=== PATIENT | female | born 1950 | race Caucasian/White ===

== ENCOUNTER 2020-05-09 10:53 | Inpatient (IN) | payer MEDICARE, SELFPAY ==
[~2020-05-09] VITALS: Ht 175.3 cm; Wt 108.4 kg
[2020-05-09 11:00] VITALS: BP 150/66
[2020-05-09] MEDS ORDERED: NACL 0.9% 1,000 ML IV ONE ×2 (11:20→13:25)
[2020-05-09 12:10] LABS: BASOPHILS % (AUTO) 0.1 % (0.0-2.0); HEMATOCRIT 42.6 % (36-48); HEMOGLOBIN 12.7 g/dL (12.0-16.0); LYMPHOCYTES # (AUTO) 1.3 K/uL (2.5-16.5); LYMPHOCYTES % (AUTO) 11.9 % (20.5-51.1); MEAN CORPUSCULAR HEMOGLOBIN 27 pg (27-31); MEAN CORPUSCULAR HGB CONC 30 g/dL (33-37); MEAN CORPUSCULAR VOLUME 89.8 fL (80-94); MONOCYTES # (AUTO) 0.9 K/uL (0.8-1.0); MONOCYTES % (AUTO) 8.5 % (1.7-9.3); NEUTROPHILS # (AUTO) 8.5 K/uL (1.8-7.7); NEUTROPHILS % (AUTO) 79.5 % (42.2-75.2); PLATELET COUNT (AUTO) 354 K/uL (140-450); RED BLOOD CELL COUNT(AUTO) 4.74 MIL/uL (4.20-5.40); RED CELL DISTRIBUTION WIDTH 14.8 % (11.6-13.7); WHITE BLOOD COUNT (AUTO) 10.7 K/uL (4.8-10.8)
--- NOTE | 2020-05-09 12:21 | NUR ---
PATIENT PRESENTS TO ED WITH GEN WEAKNESS AND HIGH BLOOD SUGAR . N/V/D; SKIN IS PINK/WARM/DRY; AAOX4 WITH EVEN AND WEAK GAIT; LUNGS CLEAR BL; HR EVEN AND REGULAR; PT DENIES ANY FEVER, CP, SOB, OR COUGH AT THIS TIME; PATIENT STATES PAIN OF 0/10 AT THIS TIME; VSS; PATIENT POSITIONED FOR COMFORT; HOB ELEVATED; BEDRAILS UP X2; BED DOWN. ER MD MADE AWARE OF PT STATUS.
[2020-05-09 12:23] LABS: PROTHROMBIN TIME 9.7 secs (10.8-13.4)
[2020-05-09 12:25] LABS: MAGNESIUM 1.9 mg/dL (1.8-2.4)
[2020-05-09 12:27] LABS: ALBUMIN 3.2 g/dL (3.4-5.0); ANION GAP 33.8 (8-16); CREATININE 1.8 mg/dL (0.6-1.3); TOTAL BILIRUBIN 0.4 mg/dL (0.0-1.0)
[2020-05-09 12:42] LABS: C-REACTIVE PROTEIN QUANT 4.3 mg/dL (0.0-0.9)
[2020-05-09 12:46] LABS: CARBON DIOXIDE 8.6 mmol/L (21-32)
--- NOTE | 2020-05-09 13:00 | NUR ---
DAUGHTER'S NUMBER [id number]
[2020-05-09] MEDS ORDERED: INSULIN REGULAR, HUMAN 100 UNIT in NACL 0.9% 100 ML IV SCH ×4 (13:25→14:40)
[2020-05-09 13:27] LABS: POTASSIUM 6.4 mmol/L (3.5-5.1)
[2020-05-09] MEDS: BLOOD GLUCOSE MONITORING 1 DEV DEV FS SCH ×11 (13:53→22:47)
[2020-05-09 13:55] LABS: RSV NEGATIVE (NEGATIVE)
[2020-05-09] MEDS ORDERED: CALCIUM GLUCONATE 10% 1,000 MG in NACL 0.9% 50 ML IV SCH (14:48)
[2020-05-09] MEDS ORDERED: HYDROcodone/APAP 5/325 MG 1 TAB TAB PO PRN (14:55)
[2020-05-09] MEDS ORDERED: DOCUSATE SODIUM 100 MG GELCAP PO PRN (14:55)
[2020-05-09] MEDS ORDERED: ONDANSETRON 4 MG/2 ML VIAL IM/IVP PRN (14:55)
[2020-05-09] MEDS ORDERED: POTASSIUM CHLORIDE 40 MEQ, LIDOCAINE MPF 1% 25 MG in NACL 0.9% 250 ML IV PRN (14:55)
[2020-05-09] MEDS ORDERED: ACETAMINOPHEN 325 MG TAB PO PRN (14:55)
[2020-05-09] MEDS ORDERED: MORPHINE SULFATE 2 MG/ML SYR IVP PRN (14:55)
[2020-05-09] MEDS ORDERED: MAG SULF 2000 MG/WATER PREMIX 50 ML IV PRN (14:55)
[2020-05-09] MEDS ORDERED: SODIUM PHOS / POTASSIUM PHOS 1 PKT PDR PO PRN (14:55)
[2020-05-09 15:07] LABS: APPEARANCE,URINE CLEAR (CLEAR); BILIRUBIN,URINE 1+ (NEGATIVE); BLOOD, URINE 1+ (NEGATIVE); COLOR,URINE YELLOW (YELLOW); LEUKOCYTE ESTERASE ,URINE NEGATIVE (NEGATIVE); NITRITE, URINE NEGATIVE (NEGATIVE); UGLUCOSE 3+ (NEGATIVE)
--- NOTE | 2020-05-09 15:30 | NUR ---
INSULIN DRIP STARTED
[2020-05-09] MEDS: NACL 0.9% 1,000 ML IV SCH ×2 (15:35→20:06)
[2020-05-09 16:21] LABS: RBC,URINE 0-5 /HPF (0-5); WBC,URINE 0-5 /HPF (0-5)
[2020-05-09 16:48] LABS: MAGNESIUM 2.3 mg/dL (1.8-2.4); PHOSPHORUS 5.7 mg/dL (2.5-4.9)
[2020-05-09 16:50] LABS: ANION GAP 33.3 (8-16); CREATININE 1.5 mg/dL (0.6-1.3)
[2020-05-09 17:27] LABS: CARBON DIOXIDE 7.4 mmol/L (21-32)
[2020-05-09 17:28] LABS: POTASSIUM 5.7 mmol/L (3.5-5.1)
--- NOTE | 2020-05-09 19:20 | NUR ---
RECEIVED REPORT FROM DAKOTA MCCORD AND [facility].
--- NOTE | 2020-05-09 19:30 | NUR ---
PT AWAKE IN BED. PT STATES THAT SHE FEELS SLEEPY BUT IN NO PAIN. VSS AT THIS TIME. EXPLAINED PLAN OF CARE FOR THE PM SHIFT, PT UNDERSTANDS. BOTH SIDE RAILS UP AND BED IN LOWEST POSITION. BED CHOU AT BEDSIDE AND CALL LIGHT WITHIN REACH.
--- NOTE | 2020-05-09 19:53 | NUR ---
PT RIGHT HAND IV WAS OUT. ALL MEDS AND FLUIDS WERE RUNNING BUT NOT INFUSING. WET LINENS REPLACED AND FLUIDS/MEDS STARTED RUNNING ON LEFT WRIST IV
--- NOTE | 2020-05-09 20:03 | NUR ---
BS 280. DECREASED INSULIN DRIP TO 3U/HR PER PROTOCOL.
[2020-05-09 20:32] LABS: ANION GAP 28.4 (8-16); CREATININE 1.4 mg/dL (0.6-1.3); POTASSIUM 5.2 mmol/L (3.5-5.1)
[2020-05-09 20:33] LABS: MAGNESIUM 2.2 mg/dL (1.8-2.4); PHOSPHORUS 4.4 mg/dL (2.5-4.9)
[2020-05-09 20:37] LABS: CARBON DIOXIDE 9.8 mmol/L (21-32)
[2020-05-09] MEDS: METOPROLOL 25 MG TAB PO SCH (21:43)
[2020-05-09] MEDS ORDERED: ALBUTEROL SULFATE/IPRATROPIU 3 ML SOL IH PRN (21:55)
[2020-05-09] MEDS: FAMOTIDINE 20 MG/2 ML VIAL IV SCH (22:47)
--- NOTE | 2020-05-09 22:49 | NUR ---
BS 226 DECREASED TO 2U PER PROTOCOL
--- NOTE | 2020-05-09 23:12 | NUR ---
PT ASLEEP IN BED AT THIS TIME. PT CONNECT TO MONITOR AND VITAL SIGNS WITHIN NORMAL LIMITS. RESPIRATIONS ARE EVEN AND UNLABORED. BED IN LOWEST POSITION AND SIDE RAILS UP. CALL LIGHT WITHIN REACH
[2020-05-10] MEDS: BLOOD GLUCOSE MONITORING 1 DEV DEV FS SCH ×21 (00:46→22:49)
[2020-05-10] MEDS: NACL 0.9% 1,000 ML IV SCH ×5 (00:47→16:25)
[2020-05-10 00:50] LABS: MAGNESIUM 2.2 mg/dL (1.8-2.4); PHOSPHORUS 3.5 mg/dL (2.5-4.9)
--- NOTE | 2020-05-10 01:25 | NUR ---
PT SLEEPING IN BED, EASILY AROUSEABLE TO VOICE. RESPIRATIONS EVEN AND UNLABORED. VSS. BED IN LOWEST POSITION AND SIDE RAILS UP. BEDSIDE COMMODE READILY AVAILABLE IN ROOM. CALL LIGHT WITHIN REACH
[2020-05-10 02:05] LABS: ANION GAP 25.8 (8-16); CARBON DIOXIDE 11.7 mmol/L (21-32); CREATININE 1.3 mg/dL (0.6-1.3); POTASSIUM 5.5 mmol/L (3.5-5.1)
[2020-05-10 05:13] LABS: ANION GAP 25.9 (8-16); CREATININE 1.3 mg/dL (0.6-1.3); POTASSIUM 5.9 mmol/L (3.5-5.1)
--- NOTE | 2020-05-10 05:25 | NUR ---
16 G IV INSERTED IN RIGHT UPPER ARM VIA ULTRASOUND
--- NOTE | 2020-05-10 07:15 | NUR ---
RECEIVED REPORT FROM CAMERA PROTOTYPING ENGINEER FOR CONTINUITY OF CARE
--- NOTE | 2020-05-10 08:40 | NUR ---
ENDOCRINOLOGY NURSE UNABLE TO OBTAIN VBG SAMPLE AT THIS TIME LAB TO ATTEMPT AT A LATER TIME
[2020-05-10] MEDS: METOPROLOL 25 MG TAB PO SCH ×2 (08:42→22:30)
[2020-05-10] MEDS: ENOXAPARIN 40 MG/0.4 ML SYR SUBQ SCH (08:42)
--- NOTE | 2020-05-10 08:54 | NUR ---
PATIENT HAS BEEN SCREENED AND CATEGORIZED HIGH NUTRITION RISK. PATIENT WILL BE SEEN WITHIN 1-2 DAYS OF ADMISSION. 05/10/20-05/11/[address]
--- NOTE | 2020-05-10 09:06 | NUR ---
PT IN BED, HOB ELEVATED. AOX4, NO C/O PAIN, NO SOB, ON ROOM AIR. DUE MEDS GIVEN. BS 248, ON INSULIN DRIP 2U/HR ORDERED
[2020-05-10 09:26] LABS: MAGNESIUM 2.1 mg/dL (1.8-2.4); PHOSPHORUS 3.5 mg/dL (2.5-4.9)
--- NOTE | 2020-05-10 10:29 | NUR ---
SOCIAL WORK NOTE: Patient's Orientation Unable To Assess Information Provided By GERRY ARTEAGA - DAUGHTER Comments SW WAS UNABLE TO MEET PATIENT AT BEDSIDE. SW COMPLETED ASSESSMENT WITH PATIENT'S DAUGHTER. New Media Strategist, Realtionship and Phone Number GERRY ARTEAGA DAUGHTER [phone] JADE LOCKWOODSON [phone] Healthcare Power of Creel Hand No Does Patient Have a POLST Yes Identifying Problems No Social Work Triggers Is A Social Work Consult Needed No Mandate Report Filed No Explanation Of Identifying Problems PATIENT IS A 69-YEAR-OLD FEMALE ADMITED FOR DKA AND HYPERKALEMIA. PATIENT HAS PMHX OF HYPERTENSION, DIABETES, SVT, AND ASTHMA. PATIENT'S DAUGHTER REPORTED NO HX OF MENTAL HEALTH OR SUBSTANCE ABUSE. Admitted From Home Pre-Admission Level Of Functioning Status Independent/Ambulatory Prior Resources/Services Used In Last 12 Months No Prior Resources Used Prior DME No Prior DME Used Dialysis Comments N/A Living Situation Lives With Family House Patient Had Caregiver No Home Support No Caregiver Issues Financial Issues No Known Financial Issue Referral To The Financial Counselor Needed No Factors/Needs No D/C Needs Identified Pt/Rep Participated In Discharge Plan Yes Patient/Family Agress With Discharge Plan Yes Discharge Plan Comments TENTATIVE DISCHARGE PLAN IS FOR PATIENT TO RETURN HOME. DC Plan Status Initiated
[2020-05-10 10:31] LABS: BASOPHILS % (AUTO) 0.2 % (0.0-2.0); HEMOGLOBIN 11.4 g/dL (12.0-16.0); LYMPHOCYTES # (AUTO) 1.2 K/uL (2.5-16.5); LYMPHOCYTES % (AUTO) 10.6 % (20.5-51.1); MEAN CORPUSCULAR HEMOGLOBIN 27 pg (27-31); MEAN CORPUSCULAR HGB CONC 32 g/dL (33-37); MEAN CORPUSCULAR VOLUME 85.4 fL (80-94); MONOCYTES % (AUTO) 8.4 % (1.7-9.3); NEUTROPHILS # (AUTO) 9.4 K/uL (1.8-7.7); NEUTROPHILS % (AUTO) 80.8 % (42.2-75.2); PLATELET COUNT (AUTO) 272 K/uL (140-450); RED BLOOD CELL COUNT(AUTO) 4.22 MIL/uL (4.20-5.40); RED CELL DISTRIBUTION WIDTH 14.3 % (11.6-13.7); WHITE BLOOD COUNT (AUTO) 11.6 K/uL (4.8-10.8)
[2020-05-10 10:49] LABS: CREATININE 1.1 mg/dL (0.6-1.3); POTASSIUM 4.9 mmol/L (3.5-5.1)
[2020-05-10 10:54] LABS: CARBON DIOXIDE 8.9 mmol/L (21-32)
[2020-05-10 12:40] LABS: ANION GAP 27.6 (8-16); CREATININE 1.3 mg/dL (0.6-1.3); POTASSIUM 4.6 mmol/L (3.5-5.1)
--- NOTE | 2020-05-10 13:00 | NUR ---
DR ALFREDO NOTIFIED OF ANION GAP AND BLOOD SUGAR TRENDING UP, CO2 TRENDING DOWN. ORDERED TO ADJUST INSULIN DRIP TO 0.1UNIT/KG/HR
[2020-05-10] MEDS: INSULIN REGULAR, HUMAN 100 UNIT in NACL 0.9% 100 ML IV SCH ×2 (14:34)
[2020-05-10 16:41] LABS: ANION GAP 26.9 (8-16); CREATININE 1.1 mg/dL (0.6-1.3); POTASSIUM 4.2 mmol/L (3.5-5.1)
[2020-05-10 16:50] LABS: CARBON DIOXIDE 9.3 mmol/L (21-32)
--- NOTE | 2020-05-10 19:16 | NUR ---
Assumed care of pt. Pt resting comfortably in bed. VSS. Pt on cardiac tele monitor. Will continue to monitor.
--- NOTE | 2020-05-10 19:55 | NUR ---
BS 129
--- NOTE | 2020-05-10 20:00 | NUR ---
IVF D51/2NS started per protocol
[2020-05-10 20:21] LABS: CARBON DIOXIDE 10.5 mmol/L (21-32); POTASSIUM 3.5 mmol/L (3.5-5.1)
--- NOTE | 2020-05-10 20:55 | NUR ---
BS 102
--- NOTE | 2020-05-10 21:47 | NUR ---
BS 122
--- NOTE | 2020-05-10 22:06 | NUR ---
Pt resting comfortably in bed. Pt educated to keep arm straight for IV fluids. VSS. All needs met at this time.
--- NOTE | 2020-05-10 22:23 | NUR ---
Pt given water
[2020-05-10] MEDS: FAMOTIDINE 20 MG/2 ML VIAL IV SCH (22:30)
--- NOTE | 2020-05-10 22:51 | NUR ---
BS 122
--- NOTE | 2020-05-11 00:04 | NUR ---
BS 112
[2020-05-11] MEDS: BLOOD GLUCOSE MONITORING 1 DEV DEV FS SCH ×20 (00:05→23:30)
[2020-05-11 00:40] LABS: ANION GAP 15.7 (8-16); CARBON DIOXIDE 15.6 mmol/L (21-32); CREATININE 0.9 mg/dL (0.6-1.3); POTASSIUM 3.3 mmol/L (3.5-5.1)
--- NOTE | 2020-05-11 01:30 | NUR ---
Verified orders with Dr. Renee. TO keep Insulin at 5 units/hr and D5 1/2 NS 200ml/hr. order okay to eat in the morning.
--- NOTE | 2020-05-11 02:21 | NUR ---
Pt had arm bent preventing IVF from running, BS 67. Pt given [employer]
--- NOTE | 2020-05-11 02:31 | NUR ---
MD made aware of BS, awaiting for orders at this time.
--- NOTE | 2020-05-11 02:37 | NUR ---
BS 84
--- NOTE | 2020-05-11 03:31 | NUR ---
Pt resting in bed, helped reposition for comfort. Given extra blanket. VSS. Will continue to monitor.
--- NOTE | 2020-05-11 04:05 | NUR ---
PATIENT WAS FOUND TO HAVE LEFT AC IV SITE REMOVED. CHRISTAL DUNCAN WAS NOTIFIED.
--- NOTE | 2020-05-11 04:23 | NUR ---
IVF resumed, 20 gauge in left AC established.
--- NOTE | 2020-05-11 06:14 | NUR ---
No changes upon assessment
--- NOTE | 2020-05-11 06:35 | NUR ---
BS 107
--- NOTE | 2020-05-11 07:09 | NUR ---
Report given and care endorsed to DAKOTA Solorzano
[2020-05-11 08:57] LABS: ANION GAP 20.2 (8-16); CARBON DIOXIDE 14.2 mmol/L (21-32); CREATININE 0.9 mg/dL (0.6-1.3); POTASSIUM 3.4 mmol/L (3.5-5.1)
[2020-05-11] MEDS: METOPROLOL 25 MG TAB PO SCH ×2 (09:46→21:00)
[2020-05-11] MEDS: ENOXAPARIN 40 MG/0.4 ML SYR SUBQ SCH (09:46)
[2020-05-11] MEDS: INSULIN REGULAR, HUMAN 100 UNIT in NACL 0.9% 100 ML IV SCH ×2 (10:49)
--- NOTE | 2020-05-11 11:00 | NUR ---
PATIENT SLEEPING COMFORTABLY IN BED. NOT IN ANY DISTRESS.
--- NOTE | 2020-05-11 12:00 | NUR ---
PER MD, MAY CHANGE D5 1/2NS TO NS @ 60ML/HR POST MEAL
--- NOTE | 2020-05-11 12:42 | NUR ---
PT EATING IN BED. NOT IN ANY DISTRESS.
--- NOTE | 2020-05-11 13:50 | NUR ---
D5 1/2NS DISCONTINUED. NS @ 60 ML/HR STARTED PER MD ORDER.
--- NOTE | 2020-05-11 14:43 | NUR ---
BUN 95, creatinine 11.7--critical values received from lab. Dr Renee made aware
--- NOTE | 2020-05-11 14:52 | NUR ---
05/11/20 RD INITIAL ASSESSMENT COMPLETED PLEASE REFER TO NUTRITION ASSESSMENT UNDER CARE ACTIVITY FOR ESTIMATED NUTRITIONAL NEEDS. 1. CONTINUE CARDIAC, RENAL CCHO DIET TOLERATED 2. RD WILL PROVIDE NUTRITION EDUCATION ON DIABETES AND CONSISTENT CARBOHYDRATE INTAKE 3. RD TO FOLLOW-UP 3-5 DAYS, MODERATE RISK CARL DEVINE, RD
[2020-05-11 16:14] LABS: CREATININE 0.8 mg/dL (0.6-1.3)
[2020-05-11 16:21] LABS: ANION GAP 13.8 (8-16)
[2020-05-11 16:27] LABS: POTASSIUM 2.8 mmol/L (3.5-5.1)
--- NOTE | 2020-05-11 16:29 | NUR ---
BS 54. MD ORDERS FOLLOWS: DISCONTINUE NS AND START D5 1/2NS @100ML/HR ONE BAG
[2020-05-11] MEDS ORDERED: KCL 20 MEQ/WATER INJ PREMIX 100 ML IV ONE (16:41)
--- NOTE | 2020-05-11 16:45 | NUR ---
RECEIVED CALL FROM LAB. SPECIMEN DRAWN FROM 11AM CONTAMINATED. DISREGARD LAB RESULTS FROM THIS DRAW.
[2020-05-11] MEDS ORDERED: KCL 20 MEQ/WATER INJ PREMIX 100 ML IV SCH (17:00)
--- NOTE | 2020-05-11 18:30 | NUR ---
BS 47. DR ALFREDO ORDERED THE FF: INCREASE D5 1/2NS TO 200ML/HR GIVE 1 AMP D50
[2020-05-11] MEDS: DEXTROSE 50% 50 ML SYR IVP PRN (18:39)
--- NOTE | 2020-05-11 19:25 | NUR ---
PER NURSE KARLI PT ACCIDENTLY PULLED ON HER IV SITE ON THE L AC. NEW IV SITE ESTABLISHED TO L WRIST 22 G SITE WAS PATENT, FLUSHED WITH 10 ML OF 0.9% NS. NO REDNESS, SWELLING OR INFILTRATION NOTED.
[2020-05-11] MEDS: DEXT 5% / NACL 0.45% 1,000 ML IV SCH (19:30)
--- NOTE | 2020-05-11 19:30 | NUR ---
RECEIVED REPORT FROM KARLI DUNCAN FOR CONTINUITY OF CARE.
[2020-05-11 19:31] LABS: ANION GAP 17.4 (8-16); CARBON DIOXIDE 16.7 mmol/L (21-32); CREATININE 0.9 mg/dL (0.6-1.3); POTASSIUM 3.1 mmol/L (3.5-5.1)
--- NOTE | 2020-05-11 20:45 | NUR ---
PT REMAINS ON INSULIN DRIP RUNNING AT 0.05 UNITS/KG. ION GAP OF 17.4. NOTIFIED DR. ALFREDO AND GAVE NO NEW ORDERS AND TO CONTINUE PT ON INSULIN DRIP TILL WE CAN RECEIVE TWO CONSICUTIVES ION GAPS OF LESS THAN 13. WILL CONTINUE TO MONITOR. PT IS IN NO ACUTE DISTRESS NOTED, BREATHING EVEN AND UNLABORED EVIDENCE BY RISE AND FALL OF CHEST WALL. Q1 HR ACCUCHECKS FOR INSULIN. ARNAUD CONTINUE TO MONITOR. ON CARDIAC MONITORING, BP MONITORING AND PULSE OXIMETRY.
--- NOTE | 2020-05-11 21:20 | NUR ---
PT ASSISTED TO BEDSIDE BEDPAN, TOLERATED WELL. PER PT REQUEST BREIF WAS GIVEN.
[2020-05-11] MEDS: FAMOTIDINE 20 MG/2 ML VIAL IV SCH (22:05)
[2020-05-11 23:32] LABS: CREATININE 0.7 mg/dL (0.6-1.3)
[2020-05-11 23:33] LABS: CARBON DIOXIDE 16.3 mmol/L (21-32)
[2020-05-11 23:35] LABS: ANION GAP 16.6 (8-16); POTASSIUM 2.9 mmol/L (3.5-5.1)
--- NOTE | 2020-05-11 23:45 | NUR ---
CRITICAL LAB OF K+ 2.9. NOTIFIED DR. ALFREDO AND GAVE NO NEW ORDERS STATED TO FOLLOW PRN ORDER.
--- NOTE | 2020-05-12 | NUR ---
CALLED INTERNAL COMMUNICATIONS MANAGER JODEE THAT PRN POTASSIUM CHLORIDE 40 MEQ WITH XYLOCAINE. WAS NOT AVAILABLE IN [facility] AND STATED, "THAT SHE WOULD CALL PHARMACY AND GET BACK TO NURSE". WILL FOLLOW UP.
--- NOTE | 2020-05-12 00:05 | NUR ---
MRSA SWAB COLLECTED AND WALKED TO LAB.
[2020-05-12] MEDS: BLOOD GLUCOSE MONITORING 1 DEV DEV FS SCH ×9 (00:30→21:21)
--- NOTE | 2020-05-12 00:31 | NUR ---
FOLLOWED UP WITH DRYER AND WASHER MECHANIC JODEE REGARDING KCL WITH LIDOCAINE AND STATED THAT PAHRMACIST WAS ALREADY PREPARRING MEDICATION AND SOON IT BECAME AVAILABLE SHE WOULD BRING MEDICATION TO THE FLOOR. NOTIFIED DR. ALFREDO AND STATED, "OKAY THANKS".
--- NOTE | 2020-05-12 00:54 | NUR ---
RECEIVED MEDICATION FROM REPAIR ARMATURE WINDER HELPER JODEE, MEDICATION GIVEN.
--- NOTE | 2020-05-12 02:31 | NUR ---
SEE IV SPREADSHEET OR BLOOD GLUCOSE MONITORING FOR BLOOD GLUCOSE LEVEL.
--- NOTE | 2020-05-12 03:47 | NUR ---
PT IN NO ACUTE DISTRESS NOTED BREATHING EVEN AND UNLABORED EVIDENCE BY RISE AND FALL OF CHEST WALL. INSULIN DRIP RUNNING AT 0.05 UNITS/KG/HR. PT ALSO ON KCL W/LIDOCAINE RUNNING AT 10 MEQ/HR. FOR A TOTAL OF [address] ORDER. D5% 1/2 NS RUNNING AT 200 ML/HR. REMAINS ON BEDSIDE MONITORING, WILL CONTINUE TO MONITOR FOR ANY CHANGES IN CONDITION. CALL LIGHT LEFT WITHIN REACH AND ALL NEEDS MEET PRIOR TO EXIT.
--- NOTE | 2020-05-12 04:48 | NUR ---
NEW INSULIN BAG MIXED AND HUNG AT THIS TIME. VERIFIED BY SECOND RN FLORINDA. CONTINUED RATE OF 0.05 UNITS/KG/HR.
[2020-05-12] MEDS: INSULIN REGULAR, HUMAN 100 UNIT in NACL 0.9% 100 ML IV SCH ×2 (04:49)
[2020-05-12] MEDS: DEXT 5% / NACL 0.45% 1,000 ML IV SCH ×2 (04:51→15:07)
--- NOTE | 2020-05-12 05:50 | NUR ---
FELISA SWAB COLLECTED AND WALKED TO LAB.
[2020-05-12 06:23] LABS: ANION GAP 19.3 (8-16); CARBON DIOXIDE 16.3 mmol/L (21-32); CREATININE 0.8 mg/dL (0.6-1.3); POTASSIUM 3.6 mmol/L (3.5-5.1)
--- NOTE | 2020-05-12 07:16 | NUR ---
REPORT GIVEN TO KARLI DUNCAN FOR CONTINUITY OF CARE.
--- NOTE | 2020-05-12 07:16 | NUR ---
NOTIFIED DR. ALFREDO OF ANION GAP TRENDING UPWARD NEW RESULT OF 19.3. GAVE NO NEW ORDERS.
--- NOTE | 2020-05-12 07:33 | NUR ---
PT SLEEPING COMFORTABLY IN BED AT THIS TIME.
[2020-05-12] MEDS: ENOXAPARIN 40 MG/0.4 ML SYR SUBQ SCH (08:49)
[2020-05-12] MEDS: METOPROLOL 25 MG TAB PO SCH ×2 (09:10→21:12)
[2020-05-12 09:16] LABS: ANION GAP 15.3 (8-16); CARBON DIOXIDE 16.6 mmol/L (21-32); CREATININE 0.6 mg/dL (0.6-1.3)
--- NOTE | 2020-05-12 10:18 | NUR ---
Potassium 2.9--critical value received from lab.
--- NOTE | 2020-05-12 10:21 | NUR ---
.K- 2.9 DR ALFREDO MADE AWARE. ORDER OF 20MEQ KCL GIVEN AND CARRIED OUT.
[2020-05-12 10:27] LABS: POTASSIUM 2.9 mmol/L (3.5-5.1)
[2020-05-12] MEDS ORDERED: KCL 20 MEQ/WATER INJ PREMIX 100 ML IV ONE (10:29)
[2020-05-12] MEDS ORDERED: KCL 20 MEQ/WATER INJ PREMIX 100 ML IV SCH (11:00)
[2020-05-12] MEDS: DEXTROSE 50% 50 ML SYR IVP PRN (12:13)
[2020-05-12 12:37] LABS: ANION GAP 15.4 (8-16); CARBON DIOXIDE 17.8 mmol/L (21-32); CREATININE 0.7 mg/dL (0.6-1.3); POTASSIUM 3.2 mmol/L (3.5-5.1)
--- NOTE | 2020-05-12 12:45 | NUR ---
LATE ENTRY -- 1ST NORMAL SALINE BOLUS COMPLETED AT 1220, 2ND BOLUS COMPLETED AT 1459 BOTH ON 05/09/20
--- NOTE | 2020-05-12 15:48 | NUR ---
Covid results received from lab. Results = Positive. Hard copy requested from lab and placed in infection controls mailbox.
--- NOTE | 2020-05-12 15:57 | NUR ---
TEXTED DR. ALFREDO TO SEE IF PATIENT MAY BE DOWNGRADED TO TELE.
[2020-05-12] MEDS ORDERED: INSULIN LISPRO SLIDING SCALE 100 UNITS/ML VIAL SUBQ PRN (16:00)
--- NOTE | 2020-05-12 16:03 | NUR ---
PER DR ALFREDO, MAY STOP INSULIN DRIP AND START ON SLIDING SCALE.
[2020-05-12 16:56] LABS: CREATININE 0.6 mg/dL (0.6-1.3)
--- NOTE | 2020-05-12 16:57 | NUR ---
REC'D TELEPHONE REPORT FROM ED NURSE
--- NOTE | 2020-05-12 17:01 | NUR ---
REPORT CALLED TO DAKOTA LORENZ. PT GOING TO TELE ROOM 123-B.
[2020-05-12 17:09] LABS: ANION GAP 17.2 (8-16); CARBON DIOXIDE 17.8 mmol/L (21-32)
--- NOTE | 2020-05-12 17:30 | NUR ---
REC'D PT FROM ED NURSE, PT WALKED TO BED, RA. A/ox4,SKIN INTACT, RED PATCHES ON KRISHAN.LOWER EXTREMITIES, R. HAND 20G INFUSING D5/0.45NS AT 100ML HOUR. MRSA SWAB COLLECTED.
--- NOTE | 2020-05-12 17:33 | NUR ---
Patient will be admitted to care of DR CARLISLE. Admited to TELE. Will go to room 123B. Belongings list completed. Report to DAKOTA LORENZ.
--- NOTE | 2020-05-12 19:45 | NUR ---
RECEIVED BEDSIDE REPORT FROM DAY SHIFT NURSE. PATIENT IS AWAKE RESPIRATION EVEN UNLABORED ON ROOM AIR. NO DISTRESS NOTED. SKIN IS WARM AND DRY. IV PATENT AND INTACT. PLAN OF CARE WAS DISCUSSED. ALL SAFETY MEASURES IN PLACE. BED IS AT LOW POSITION. CALL LIGHT WITHIN REACH. WILL CONTINUE TO MONITOR.
--- NOTE | 2020-05-12 19:55 | NUR ---
ENDORSED PT TO SANITARIAN NURSE, PT STABLE
[2020-05-12 20:00] VITALS: BP 116/77
[2020-05-12 20:46] LABS: ANION GAP 17.3 (8-16); CARBON DIOXIDE 19.1 mmol/L (21-32); CREATININE 0.7 mg/dL (0.6-1.3); POTASSIUM 3.4 mmol/L (3.5-5.1)
[2020-05-12] MEDS: FAMOTIDINE 20 MG/2 ML VIAL IV SCH (21:12)
[2020-05-12] MEDS: INSULIN LISPRO SLIDING SCALE 100 UNITS/ML VIAL SUBQ PRN (21:20)
--- NOTE | 2020-05-12 21:25 | NUR ---
ALL SCHEDULED MEDS WERE GIVEN PER ORDER. NO ASE NOTED. WILL CONTINUE TO MONITOR.
--- NOTE | 2020-05-12 23:42 | NUR ---
MADE ROUNDS. PATIENT IS AWAKE RESPIRATION EVEN UNLABORED ON ROOM AIR. NO DISTRESS NOTED. WILL CONTINUE TO MONITOR
[2020-05-13] VITALS: BP 146/66
[2020-05-13] MEDS: DEXT 5% / NACL 0.45% 1,000 ML IV SCH ×3 (00:57→20:40)
--- NOTE | 2020-05-13 02:16 | NUR ---
MADE ROUNDS PATIENT SLEEPING RESPIRATION EVEN UNLABORED ON ROOM AIR. NO DISTRESS NOTED. WILL CONTINUE TO MONITOR.
[2020-05-13 04:00] VITALS: BP 149/81
--- NOTE | 2020-05-13 04:30 | NUR ---
MORNING CARE PROVIDED.
[2020-05-13] MEDS: BLOOD GLUCOSE MONITORING 1 DEV DEV FS SCH ×4 (06:43→21:00)
[2020-05-13] MEDS ORDERED: INSULIN LISPRO 100 UNITS/ML VIAL SUBQ ONE (07:30)
--- NOTE | 2020-05-13 07:37 | NUR ---
ENDORSED PATIENT TO DAY SHIFT NURSE FOR CONTINUITY OF CARE
[2020-05-13 08:00] VITALS: BP 166/87
[2020-05-13] MEDS: METOPROLOL 25 MG TAB PO SCH ×2 (09:49→21:00)
[2020-05-13] MEDS: ENOXAPARIN 40 MG/0.4 ML SYR SUBQ SCH (09:52)
--- NOTE | 2020-05-13 09:59 | NUR ---
MEDICATION DUE GIVEN PATIENT. RECENT VITAL SIGNS BP 166/87 VA 79. NO DISTRESS NOTED. NO PAIN NOTED. SAFETY MEASURES IN PLACE. CALL LIGHT WITHIN REACH. WILL CONTINUE TO MONITOR.
--- NOTE | 2020-05-13 11:40 | NUR ---
BLOOD SUGAR CHECK 317 MG.DL INSULIN COVERAGE GIVEN.
[2020-05-13 12:00] VITALS: BP 162/74
[2020-05-13] MEDS: INSULIN LISPRO SLIDING SCALE 100 UNITS/ML VIAL SUBQ PRN ×2 (12:01→17:56)
--- NOTE | 2020-05-13 14:08 | NUR ---
DC [age] YRS OLD FEMALE PATIENT WAS ADMITTED FROM HOME WITH A DX OF DKA HYPERKALEMIA. BLOOD GLUCOSE 602 ON ADMISSION. PT WAS ON INSULIN DRIP AND BLOOD SUGAR 141. COVID TEST POSITIVE. STARTED COVID TREATMENT. CONSULTED WITH PULMO AND NETWORK COMMUNICATIONS ENGINEER. DC PLAN TO GO HOME WHEN STABLE. CM TO FOLLOW
[2020-05-13] MEDS: lisinopriL 10 MG TAB PO SCH (15:43)
--- NOTE | 2020-05-13 15:50 | NUR ---
MEDICATION DUE GIVEN CHECK VITAL SIGNS PRIOR TO BP MEDICATION BP 155/90 DE 86.
[2020-05-13 16:00] VITALS: BP 143/77
--- NOTE | 2020-05-13 16:40 | NUR ---
MEDICATION DUE GIVEN PATIENT. BLOOD SUGAR NOTED 295, INSULIN GIVEN NEEDED. PATIENT SHOWN NO SIGNS OF DISTRESS. CALL LIGHT WITHIN REACH. WILL CONTINUE TO MONITOR NEEDED
--- NOTE | 2020-05-13 19:36 | NUR ---
ENDORSED TO NIGHT NURSE FOR CONTINUITY OF CARE
[2020-05-13 20:00] VITALS: BP 149/44
[2020-05-13] MEDS ORDERED: INSULIN LANTUS 100 UNITS/ML 10 ML VIAL SUBQ SCH (21:00)
[2020-05-13] MEDS: FAMOTIDINE 20 MG/2 ML VIAL IV SCH (22:43)
[2020-05-14] VITALS: BP 148/50
[2020-05-14 04:00] VITALS: BP 183/107
[2020-05-14] MEDS: BLOOD GLUCOSE MONITORING 1 DEV DEV FS SCH ×2 (05:57→11:53)
[2020-05-14] MEDS: DEXT 5% / NACL 0.45% 1,000 ML IV SCH (05:58)
[2020-05-14 06:21] LABS: BASOPHILS % (AUTO) 0.2 % (0.0-2.0); EOSINOPHILS # (AUTO) 0.1 K/uL (0-0.4); HEMATOCRIT 30.3 % (36-48); HEMOGLOBIN 9.9 g/dL (12.0-16.0); LYMPHOCYTES # (AUTO) 0.7 K/uL (2.5-16.5); LYMPHOCYTES % (AUTO) 9.9 % (20.5-51.1); MEAN CORPUSCULAR HEMOGLOBIN 27 pg (27-31); MEAN CORPUSCULAR HGB CONC 33 g/dL (33-37); MEAN CORPUSCULAR VOLUME 81.8 fL (80-94); MONOCYTES # (AUTO) 0.5 K/uL (0.8-1.0); MONOCYTES % (AUTO) 7.7 % (1.7-9.3); NEUTROPHILS # (AUTO) 5.4 K/uL (1.8-7.7); NEUTROPHILS % (AUTO) 81.2 % (42.2-75.2); PLATELET COUNT (AUTO) 236 K/uL (140-450); RED CELL DISTRIBUTION WIDTH 14.7 % (11.6-13.7); WHITE BLOOD COUNT (AUTO) 6.6 K/uL (4.8-10.8)
[2020-05-14 06:44] LABS: ANION GAP 14.6 (8-16); CARBON DIOXIDE 21.6 mmol/L (21-32); CREATININE 0.7 mg/dL (0.6-1.3); PHOSPHORUS 1.8 mg/dL (2.5-4.9); POTASSIUM 3.2 mmol/L (3.5-5.1)
--- NOTE | 2020-05-14 07:41 | NUR ---
0727: Received report from bri Whitfield RN
[2020-05-14 08:00] VITALS: BP 147/89
[2020-05-14] MEDS: METOPROLOL 25 MG TAB PO SCH (09:18)
[2020-05-14] MEDS: lisinopriL 10 MG TAB PO SCH (09:19)
[2020-05-14] MEDS: ENOXAPARIN 40 MG/0.4 ML SYR SUBQ SCH (09:20)
--- NOTE | 2020-05-14 09:55 | NUR ---
Gave phone update to daughter, Yanci
[2020-05-14 12:00] VITALS: BP 122/75
[2020-05-14] MEDS: INSULIN LISPRO SLIDING SCALE 100 UNITS/ML VIAL SUBQ PRN (12:12)
[2020-05-14] MEDS ORDERED: ASPI-1205 PO (12:35)
[2020-05-14] MEDS ORDERED: METO25TA PO (12:35)
[2020-05-14] MEDS ORDERED: LISI10TA11 PO (12:35)
--- NOTE | 2020-05-14 12:35 | NUR ---
Daughter Yanci asked if discharge can be "fast tracked" so that her brother can pi ck up the patient. Dr Claudio notified
[2020-05-14] MEDS ORDERED: METF1000 PO (12:49)
[2020-05-14] MEDS ORDERED: INSU100S22 SUBQ ×2 (12:49→12:54)
[2020-05-14] MEDS ORDERED: SODIUM PHOS / POTASSIUM PHOS 1 PKT PDR PO SCH (13:00)
[2020-05-14 14:15] VITALS: BP 122/95
--- NOTE | 2020-05-14 15:24 | NUR ---
Patient discharged via wheelchair, accompanied by me. No oxygen; mask put on patient; valuables taken home with patient; eRX sent to patient's pharmacy; IV removed with intact tips; to be transported home by private car driven by son
== END 2020-05-14 15:15 | disposition home health service (06) | DRG 637 ==
LOC: MED 10:53 → MTU 14:46
PROVIDERS: ADMIT Hospitalist; ATTEND Hospitalist
DX: E11.10 Type 2 diabetes mellitus with ketoacidosis without coma (principal); U07.1 COVID-19; N17.0 Acute kidney failure with tubular necrosis; G93.41 Metabolic encephalopathy; E44.1 Mild protein-calorie malnutrition; E87.1 Hypo-osmolality and hyponatremia; E87.6 Hypokalemia; J45.909 Unspecified asthma, uncomplicated; I10 Essential (primary) hypertension; T38.3X6A Underdosing of insulin and oral hypoglycemic [antidiabetic] drugs, initial encounter; Y92.89 Other specified places as the place of occurrence of the external cause; Z68.35 Body mass index [BMI] 35.0-35.9, adult
CPT/HCPCS: 36415; 36600; 71045; 80048; 80053; 81001; 82550; 82728; 82803; 82948; 83036; 83605; 83615; 83735; 83880; 84100; 84443; 84484; 85025; 85379; 85384; 85610; 85730; 86140; 87040; 87081; 87086; 87420; 87804; 93005; 97116; 97161-GP; 99291; J0610; J1650; J1815; J2001; J3480; J3490; J7030; U0003

== ENCOUNTER 2022-02-18 13:49 | Emergency (ER) | payer MEDICARE ==
[~2022-02-18] VITALS: Ht 175.3 cm; Wt 99.8 kg
[~2022-02-18 13:49] MED LIST: ASPI-1205 PO; INSU100S22 SUBQ; LISI-486 PO; METF-1274 PO; METO25TA PO
[2022-02-18 13:50] VITALS: BP 103/58
[2022-02-18] MEDS ORDERED: MORPHINE SULFATE 4 MG/ML SYR IVP ONE (14:00)
[2022-02-18] MEDS ORDERED: NACL 0.9% 1,000 ML IV ONE ×2 (14:00→16:00)
[2022-02-18] MEDS ORDERED: ONDANSETRON 4 MG/2 ML VIAL IVP ONE (14:00)
[2022-02-18 14:50] LABS: BASOPHILS % (AUTO) 0.4 % (0.0-2.0); EOSINOPHILS # (AUTO) 0.4 K/uL (0-0.4); EOSINOPHILS % (AUTO) 6.5 % (0.0-4.0); HEMATOCRIT 42.3 % (36-48); HEMOGLOBIN 14.3 g/dL (12.0-16.0); LYMPHOCYTES # (AUTO) 1.3 K/uL (2.5-16.5); LYMPHOCYTES % (AUTO) 21.3 % (20.5-51.1); MEAN CORPUSCULAR HEMOGLOBIN 30 pg (27-31); MEAN CORPUSCULAR HGB CONC 34 g/dL (33-37); MEAN CORPUSCULAR VOLUME 88.9 fL (80-94); MONOCYTES # (AUTO) 0.2 K/uL (0.8-1.0); MONOCYTES % (AUTO) 2.7 % (1.7-9.3); NEUTROPHILS # (AUTO) 4.1 K/uL (1.8-7.7); NEUTROPHILS % (AUTO) 69.1 % (42.2-75.2); PLATELET COUNT (AUTO) 317 K/uL (140-450); RED BLOOD CELL COUNT(AUTO) 4.76 MIL/uL (4.20-5.40); RED CELL DISTRIBUTION WIDTH 13.1 % (11.6-13.7)
[2022-02-18 15:19] LABS: ALBUMIN 2.9 g/dL (3.4-5.0); ANION GAP 13.1 (8-16); ASPARTATE AMINOTRANSFERASE 15 U/L (15-37); CARBON DIOXIDE 26.1 mmol/L (21-32); CHLORIDE 103 mmol/L (98-107); GLUCOSE 146 mg/dL (74-106); LIPASE 256 U/L (73-393); POTASSIUM 4.2 mmol/L (3.5-5.1); SODIUM SERUM 138 mmol/L (136-145); TOTAL BILIRUBIN 0.9 mg/dL (0.0-1.0); UREA NITROGEN, BLOOD 12 mg/dL (7-18)
[2022-02-18 15:34] LABS: MAGNESIUM 2.5 mg/dL (1.8-2.4); PHOSPHORUS 3.4 mg/dL (2.5-4.9)
--- NOTE | 2022-02-18 15:46 | NUR ---
had ct done, bp 91/36, morphine held due to low bp reading md notified, will order more iv fluids sr on cm , o2 sat 99% ra, pt a/o times 4, feels tired and weak, had bm, black stools, small amount
[2022-02-18] MEDS ORDERED: KETOROLAC 30 MG/ML VIAL IVP ONE (16:00)
[2022-02-18] MEDS ORDERED: ONDANSETRON 4 MG/2 ML VIAL ONE (16:13)
[2022-02-18] MEDS ORDERED: VANCOMYCIN 1,000 MG in DEXTROSE 5% 250 ML IV ONE (16:30)
[2022-02-18] MEDS ORDERED: PIPERACILLIN/TAZOBACTAM 3.375 GM in DEXTROSE 5% 50 ML IV ONE (16:30)
[2022-02-18] MEDS ORDERED: VANCOMYCIN 1,000 MG VIAL ONE (17:20)
[2022-02-18] MEDS ORDERED: PIPERACILLIN/TAZOBACTAM 3.375 GM VIAL IV ONE (17:21)
--- NOTE | 2022-02-18 17:44 | NUR ---
pt a/o times 4, nad, abd pain 2/10, improved after med given, sr on cm, o2 sat 99% ra, sr up times 2, awaits transfer to
[2022-02-18 17:47] LABS: APPEARANCE,URINE CLEAR (CLEAR); BILIRUBIN,URINE NEGATIVE (NEGATIVE); BLOOD, URINE NEGATIVE (NEGATIVE); COLOR,URINE YELLOW (YELLOW); LEUKOCYTE ESTERASE ,URINE NEGATIVE (NEGATIVE); NITRITE, URINE NEGATIVE (NEGATIVE); UGLUCOSE 2+ (NEGATIVE)
--- NOTE | 2022-02-18 18:27 | NUR ---
pt to be transferred to [facility], report given to DAKOTA Souza [phone]
--- NOTE | 2022-02-18 18:28 | NUR ---
transfer will be er to er eta [phone]
--- NOTE | 2022-02-18 18:52 | NUR ---
pt being transferred to [facility], ER, report to subgrade tester, Nakul Mora, [facility] pt conversational, shows no ac distress, abd pain 2/10, sr on cm o2 sat 99% prior transfer time
[2022-02-18 18:55] VITALS: BP 99/53
--- NOTE | 2022-02-20 08:27 | NUR ---
LATE ENTRY-IVF/IVP GIVEN-NADR
== END 2022-02-18 18:52 | disposition short-term general hospital (02) ==
LOC: MED 13:49
DX: I95.9 Hypotension, unspecified (principal); R11.2 Nausea with vomiting, unspecified; R10.30 Lower abdominal pain, unspecified; Z20.822 Contact with and (suspected) exposure to COVID-19; J45.909 Unspecified asthma, uncomplicated; E11.9 Type 2 diabetes mellitus without complications; I10 Essential (primary) hypertension; C20 Malignant neoplasm of rectum; Z79.4 Long term (current) use of insulin; Z79.899 Other long term (current) drug therapy; Z79.82 Long term (current) use of aspirin
CPT/HCPCS: 36415; 71045; 74176; 80053; 81003; 82550; 83605; 83690; 83735; 84100; 84484; 85025; 86886; 86900; 86901; 87040; 87086; 87426; 93005; 96361; 96365; 96366; 96367; 96375; 99285; J1885; J2405; J2543; J3370; J7030; Q0092